=== PATIENT | female | born 1990 | race Caucasian/White ===

== ENCOUNTER 2016-10-05 07:56 | Inpatient (IN) | payer OTHER ==
[~2016-10-05] VITALS: Ht 165.1 cm; Wt 73.2 kg
[~2016-10-05 07:56] MED LIST: PRENTAB26 PO
[2016-10-05] MEDS ORDERED: LACTATED RINGER'S 1000ML 1,000 ML IV PRN (08:48)
[2016-10-05] MEDS ORDERED: DINOPROSTONE 10 MG INSERT PV ONE ×2 (09:00→21:00)
[2016-10-05 09:13] LABS: HEMATOCRIT 38.2 % (37-47); MEAN CELL VOLUME 87.8 fL (80-100); MEAN CORPUSCULAR HEMOGLOBIN 31.3 pg (25-34); MEAN CORPUSCULAR HGB CONC 35.6 g/dl (32-36); MEAN PLATELET VOLUME 10.8 fL (7.4-10.4); PLATELET COUNT 228 K/uL (130-400); RED BLOOD COUNT 4.35 M/uL (4.2-5.4); WHITE BLOOD COUNT 10.81 K/uL (4.8-10.8)
--- NOTE | 2016-10-05 09:26 | Progress Note ---
Progress Note Admit Note 26 F P0000 at 41.2 weeks admitted for induction of labor for post-dates. Unable to adequately check cervix due to patient being extremely nervous and not cooperative with exam. Seems that cervix is posterior and appears closed and thick by exam. Vertex presentation. GBS negative. FHT Cat 1. Cervidil 10 mg placed in vagina.
[2016-10-05 10:24] VITALS: Ht 165.1 cm; Wt 73.2 kg
--- NOTE | 2016-10-05 21:06 | Progress Note ---
Progress Note Cervidil pulled out and replaced with another Cervidil 10 mg vaginally. Patient still not allowing for cervical exam. T Cat 1.
[2016-10-06] MEDS: BUTORPHANOL TARTRATE 1 MG/ML VIAL IV PRN ×2 (01:17→02:56)
[2016-10-06] MEDS ORDERED: FENTANYL 2MCG/ML ROPIV 1.25MG/ML 100ML BAG EPI ONE (03:23)
[2016-10-06] MEDS ORDERED: EpHEDrine SULFATE INJ 50 MG/ML AMP ONE (03:23)
[2016-10-06] MEDS ORDERED: BUPIVACAINE 0.25% 30 ML VIAL ONE (03:23)
[2016-10-06] MEDS ORDERED: FENTANYL CITRATE INJ 50 MCG/1 ML 2 ML VIAL ONE (03:24)
[2016-10-06] MEDS ORDERED: NALOXONE HCL INJ 1 MG in SODIUM CHLORIDE 0.9% 1000ML 1,000 ML IV PRN ×4 (04:22)
[2016-10-06] MEDS ORDERED: LACTATED RINGER'S 1000ML 500 ML IV PRN (04:22)
[2016-10-06] MEDS ORDERED: NALOXONE HCL INJ 0.4 MG/1 ML VIAL/CARP IV PRN (04:30)
[2016-10-06] MEDS ORDERED: NALBUPHINE HCL INJ 10 MG/ML AMP IV PRN (04:30)
[2016-10-06] MEDS ORDERED: PROMETHAZINE HCL INJ 25 MG in SODIUM CHLORIDE 0.9% 50ML 50 ML IV PRN (04:30)
[2016-10-06] MEDS ORDERED: DiphenhydrAMINE HCL 50 MG/ML VIAL IV PRN (04:30)
[2016-10-06] MEDS ORDERED: ONDANSETRON INJ 2 MG/ML 2 ML VIAL IV PRN (04:30)
[2016-10-06] MEDS ORDERED: EpHEDrine SULFATE INJ 50 MG/ML AMP IV PRN (04:30)
[2016-10-06] MEDS: FENTANYL 2MCG/ML ROPIV 1.25MG/ML 100ML BAG EPI PRN ×2 (07:03→10:43)
[2016-10-06] MEDS: LACTATED RINGER'S 1000ML 1,000 ML IV SCH ×3 (07:04→13:23)
[2016-10-06] MEDS ORDERED: OXYTOCIN 30 UNITS/500ML NSS IV ONE (09:39)
[2016-10-06] MEDS ORDERED: NURSING VERBAL MED ORDER ONE (13:00)
[2016-10-06] MEDS ORDERED: CEFAZOLIN SOD 2000 MG in DEXTROSE 5% 50ML IV SCH (13:15)
[2016-10-06] MEDS ORDERED: LACTATED RINGER'S 1000ML 1,000 ML IV SCH (13:41)
[2016-10-06] MEDS ORDERED: SUPERCREAM 0.870 % 15GM JAR EXT PRN (13:45)
[2016-10-06] MEDS ORDERED: MEASLES, MUMPS & RUBELLA VIRUS VIAL SQ. ONE (13:45)
[2016-10-06] MEDS ORDERED: DIPHTHERIA/TETANUS/PERTUSSIS 0.5 ML SYR/VIAL IM. ONE (13:45)
[2016-10-06] MEDS ORDERED: LANOLIN OINT EXT PRN ×2 (13:45)
[2016-10-06] MEDS ORDERED: HYDROCORTISONE ACETATE 25 MG SUPP PR PRN (13:45)
[2016-10-06] MEDS ORDERED: BENZOCAINE 20% AER SPR 82.5 GM CAN EXT PRN (13:45)
[2016-10-06] MEDS ORDERED: IBUPROFEN 600 MG TAB PO PRN (13:45)
[2016-10-06] MEDS ORDERED: OXYTOCIN 30 UNITS/500ML NSS IV PRN (13:45)
[2016-10-06] MEDS ORDERED: CLINDAMYCIN 600 MG/54 ML D5W IV ONE (13:45)
[2016-10-06] MEDS ORDERED: ACETAMINOPHEN 325 MG TAB PO PRN (13:45)
[2016-10-06] MEDS ORDERED: OXYCODONE/ACETAMINOPHEN 5-325 TAB PO PRN (13:45)
--- NOTE | 2016-10-06 13:58 | Anesthesia Procedure Note ---
Anesthesia Epidural Removal Nt Date & Time Oct 06, 2016 at 13:57 Vital Signs Pain Intensity: 2.0 Notes Mental Status: alert / awake / arousable, participated in evaluation Nausea / Vomiting: adequately controlled Pain: adequately controlled Airway Patency, RR, SpO2: stable & adequate BP & HR: stable & adequate Hydration State: stable & adequate Neuraxial Anesthesia: was administered Anesthetic Complications: no major complications apparent, pt satisfied with anesthetic care Epidural: removed without complications, with tip intact
[2016-10-06] MEDS ORDERED: ACETAMINOPHEN SOLN 650MG/20.3 ML UDC PO PRN (14:15)
[2016-10-06] MEDS ORDERED: CLINDAMYCIN IV 600 MG in DEXTROSE 5% ADD-VANTAGE 50ML 50 ML IV ONE (14:30)
[2016-10-06] MEDS ORDERED: LIDOCAINE HCL 2% JELLY 30 ML TUBE EXT ONE ×2 (16:06→16:15)
[2016-10-06 16:55] VITALS: BP 118/76; PULSE 87; TEMP 36.8
--- NOTE | 2016-10-06 17:22 | OPERATIVE REPORT ---
DATE OF OPERATION: 10/06/2016 DELIVERY NOTE TIME OF DELIVERY OF BABY: 12:42 p.m. TIME OF DELIVERY OF PLACENTA: 13:30 p.m. DETAILS OF DELIVERY: The patient was found to be fully dilated and desired to push. She pushed for about 4 hours and then she was getting exhausted. Baby's head was minimally over the perineum. A decision was made to open an episiotomy. After verbal consent was obtained from her, the right mediolateral episiotomy was opened. 1% lidocaine was used for local anesthesia. Then with the second push, baby's head was delivered and then the shoulders were delivered with minimal traction. Baby was handed off to the mother where mouth and nose were suctioned. Cord was clamped x2 and cut, it was a 3-vessel cord. Then baby was given to the nursery team. Then cord blood was obtained. The vagina and perineum were checked for lacerations. The episiotomy was extended to fourth degree laceration which was confirmed with a rectal exam. The anal mucosa was involved about 1 cm into the anal canal with this laceration. The rectal mucosa was intact. Gloves were changed. First the anal mucosal extension was repaired with 3-0 Vicryl in a running fashion until the external anal orifice meeting the perineal skin, and then gloves were changed again and external sphincter muscles were identified, grasped with Allis clamps and brought to the middle. The sphincter muscles were repaired with U- type suture x2 and then [id number] stitch in end-to-end fashion. Rectal exam was repeated. No sutures were felt and patient had good strength of sphincter tone. Gloves were changed. The vaginal mucosa was repaired with 2-0 Vicryl in a running-locked fashion and perineal body muscles and bulbocavernosus muscles were brought together and the skin in a subcuticular fashion She was given 2 grams of cefazolin during the repair. Then placenta was found to be in patient's vagina, delivered spontaneously as intact and complete. Uterus was explored and found to be empty. Lower segment was cleared of all clots and debris. Fundus was firm. EBL was 300. Mother and baby tolerated the procedure well. Baby was a viable female , Apgars 2/9. The weight is 4260 grams which is 9 pounds 6 ounces. At the end of the procedure, sponge, lap, needle and instrument count was correct x2, and I was present during the whole procedure. She will be given 1 dose of Clindamycin IV. I attest to the content of the Intraoperative Record and any orders documented therein. Any exceptions are noted below. MTDD
[2016-10-06] MEDS ORDERED: DOCUSATE SODIUM 100 MG CAP PO SCH (20:00)
[2016-10-06] MEDS: OXYCODONE HCL 5 MG/0.25 ML UDP PO PRN (20:06)
[2016-10-06 20:10] VITALS: BP 125/74; PULSE 81; TEMP 36.9
[2016-10-06] MEDS: DOCUSATE SODIUM 100 MG/10 ML UDC PO SCH (21:29)
[2016-10-06] MEDS: MAGNESIUM HYDROXIDE SUSP 30 ML UDC PO SCH (22:27)
[2016-10-06] MEDS: IBUPROFEN 200 MG/10 ML UDC PO PRN (22:28)
[2016-10-06 23:10] VITALS: BP 111/69; PULSE 87; TEMP 36.5; O2SAT 97
[2016-10-07 03:15] VITALS: BP 100/58; PULSE 84; TEMP 36.6; O2SAT 96
[2016-10-07] MEDS: IBUPROFEN 200 MG/10 ML UDC PO PRN ×3 (06:16→20:48)
[2016-10-07 07:25] VITALS: BP 109/59; PULSE 85; TEMP 36.9
--- NOTE | 2016-10-07 07:56 | OB/GYN Progress Note ---
CARE PROCESS MANAGER Progress Note Date of Service Oct 07, 2016. Subjective conversation w/ patient, physical exam Voiding: no voiding problems Passing Gas: Yes Diet Tolerance: Regular Diet Lochia: Small Feeding Type: Breast Feeding Objective Vital Signs Date Time Temp Pulse Resp B/P Pulse Ox O2 Delivery O2 Flow Rate FiO2 10/07/16 03:15 36.6 84 18 100/58 96 Room Air 10/06/16 23:10 97 Room Air 10/06/16 23:10 36.5 87 18 111/69 97 Room Air 10/06/16 20:10 36.9 81 18 125/74 Room Air 10/06/16 16:55 Room Air 10/06/16 16:55 36.8 87 18 118/76 Room Air Physical Exam General Appearance: WELL-APPEARING, NO APPARENT DISTRESS Abdomen: non tender, soft, no organomegaly Fundus: Firm Incision Description: Clean, Dry & Intact Extremities: normal inspection, no pedal edema, no calf tenderness Laboratory Results Last 24 Hours Test 10/07/16 04:44 Assessment and Plan Post- Day Number: 1 Continue Routine Care: Tent d/c in AM
[2016-10-07] MEDS ORDERED: FERROUS SULFATE 325 MG TAB PO SCH (08:00)
[2016-10-07] MEDS ORDERED: PRENATAL VITAMIN TAB PO SCH (08:00)
[2016-10-07] MEDS: DOCUSATE SODIUM 100 MG/10 ML UDC PO SCH ×2 (08:20→20:20)
[2016-10-07] MEDS: FERROUS SULFATE 325 MG/7.4 ML UDP PO SCH (08:21)
[2016-10-07] MEDS: OXYCODONE HCL 5 MG/0.25 ML UDP PO PRN ×2 (08:21→13:55)
[2016-10-07] MEDS: FLINTSTONES COMPLETE CHEWABLE TAB PO SCH (09:11)
[2016-10-07 09:35] LABS: HEMATOCRIT 23.2 % (37-47)
[2016-10-07 13:00] VITALS: BP 116/63; PULSE 93; TEMP 36.7
[2016-10-07 17:30] VITALS: BP 110/74; PULSE 87; TEMP 36.7
[2016-10-07 20:10] VITALS: BP 115/67; PULSE 93; TEMP 36.7
[2016-10-07] MEDS ORDERED: BISACODYL 5 MG TABEC PO SCH (22:00)
[2016-10-07] MEDS: MAGNESIUM HYDROXIDE SUSP 30 ML UDC PO SCH (22:21)
[2016-10-07 23:35] VITALS: BP 117/71; PULSE 85; TEMP 36.8
[2016-10-08] MEDS: FERROUS SULFATE 325 MG/7.4 ML UDP PO SCH (07:58)
[2016-10-08] MEDS: DOCUSATE SODIUM 100 MG/10 ML UDC PO SCH (07:58)
[2016-10-08] MEDS: FLINTSTONES COMPLETE CHEWABLE TAB PO SCH (07:58)
[2016-10-08] MEDS: IBUPROFEN 200 MG/10 ML UDC PO PRN (08:01)
--- NOTE | 2016-10-08 08:05 | OB/GYN Progress Note ---
ELECTRIC STOVE MECHANIC Progress Note Date of Service: Oct 08, 2016. Patient is seen and examined. She feels well, no complaints. Ambulating without dizziness Voiding without difficulty Tolerating regular diet with out N&V Bleeding is minimal No fever/ chills/ CP/ SOB/ N&V/ Leg pain Breast feeding without problems Baby has studies pending Date Time Temp Pulse Resp B/P Pulse Ox O2 Delivery O2 Flow Rate FiO2 10/07/16 23:35 36.8 85 18 117/71 Room Air 10/07/16 23:35 Room Air 10/07/16 20:10 36.7 93 18 115/67 10/07/16 20:10 Room Air 10/07/16 17:30 Room Air 10/07/16 17:30 36.7 87 18 110/74 Room Air 10/07/16 13:00 36.7 93 18 116/63 Room Air Last 24 Hours Test 10/07/16 09:08 10/08/16 04:44 Hemoglobin 8.2 g/dL Hematocrit 23.2 % PE: General: Alert, orientedx3, NAD Abd: soft, NT, fundus firm, below Umbilicus Perineum intact, Lochia rubra minimal Ext; NT, no edema AP: 26 yo s/p , ppd# 2 VSS Afebrile doing well Anemic, asymptomatic:on iron Repeat CBC pending Continue routine care All questions were answered Instructions were given when to call D/C home after studies complete , f/u in office
[2016-10-08] MEDS ORDERED: MOML PO (08:09)
[2016-10-08] MEDS ORDERED: FSLUDL325 PO (08:09)
[2016-10-08] MEDS ORDERED: IBUP100S PO (08:09)
[2016-10-08] MEDS ORDERED: PEDICHW50 PO (08:09)
[2016-10-08 08:10] VITALS: BP 135/88; PULSE 93; TEMP 36.8; O2SAT 100
--- NOTE | 2016-10-08 08:10 | Discharge Instructions ---
Discharge Instructions Admission Reason for Admission: Induction Discharge Discharge Diagnosis / Problem: Discharge Goals Goal(s): Routine recovery after delivery Medications Continue Dispensed Medications: supercream, dermaplast, lansinoh Activity Recommendations Activity Limitations: as noted below Lifting Limitations: no more than 10 pounds Exercise/Sports Limitations: until after follow-up appointment Shower/Bathe: no limitations Driving or Machine Use: ACTIVITY RECOMMENDATIONS: * Gradual return to full activity over the next 2-3 weeks. * No lifting - nothing heavier than baby over the next 2-3 weeks. * Do not engage in vigorous exercise, sexual activity or sports until cleared by your physician. * Do not drive or operate any motorized equipment until cleared by your physician. * You may shower/bathe daily. BREAST CARE: If you are not breast feeding: * Wear a supportive bra 24 hours a day for one to two weeks. * Avoid stimulating your breasts and nipples as much as possible during the first few weeks after delivery. * When taking a shower, have the warm water hit your back, not breasts. * When your breasts feel full, apply ice packs. Usually three to four times a day helps ease the discomfort. * Take a mild pain medication (Tylenol/Motrin) when you are uncomfortable. If breast feeding: * Use breast milk to lubricate nipples. Lansinoh cream may be used for sore nipples. You do not need to remove cream prior to breast feeding. If using a different brand of cream, check the label for directions regarding removal of cream prior to nursing. * Wear a supportive bra. * If having problems with breasts or breast feeding, call a collection systems consultant or your health care provider. EPISIOTOMY CARE: After delivery, if you have an episiotomy (stitches), the following steps will ease discomfort and aid healing. * For the first 24 hours after delivery, place ice packs next to your episiotomy to help reduce swelling. * After the first 24 hour-period, sitz baths, either portable or in the tub, are suggested. A shower with a shower arm sprayed over the episiotomy may be comforting. * Crystal care should be done after each voiding and bowel movement. Squirt warm water from a plastic bottle over the perineum (region of the body between the anus and urinary opening) and pat dry. * Use Dermoplast to ease discomfort. Shake container. [place] directly over the episiotomy. * Place a Tucks on a clean sanitary pad next to your episiotomy. OVER THE COUNTER MEDICATION: * For discomfort or pain, you may use Acetaminophen (Tylenol), Ibuprofen (Advil ), or Naproxen (Aleve) following the package directions. * For constipation you may use Colace following the package directions. SPECIAL CARE INSTRUCTIONS: When you are discharged from the hospital, it is important for you to follow the instructions listed below: * During the first week at home, you should be able to care for yourself and your baby. In addition, the usual light household activities are encouraged. * Limit your activities to the way you feel. Do not try to clean the house or move furniture. Be sensible. * If you actively engage in sports and have done so up until the time of your delivery, you may resume these activities as soon as you feel able. This may take up to one month or even longer. Use good judgment. * Continue to take your vitamins for at least six weeks after the of your baby. * Your diet need not be limited unless you were on a special diet before your delivery. Breast-feeding mothers need around 2500 calories per day and at least 64-80 ounces of fluid per day (8 to 10 glasses). * You should eat foods from the four major food groups. Crash diets or fad diets are to be avoided. Eating lean meats, fresh fruits and vegetables, low-fat dairy products, high fiber foods and a regular exercise program, will help you get back to your pre- weight without putting your health at risk. * Constipation is sometimes a problem after delivery. Take a mild laxative as needed. If breast feeding, Milk of Magnesia is acceptable to use. You may use a suppository or Fleets enema if no episiotomy. * A daily shower or tub bath is suggested. Be sure to thoroughly and gently dry the perineum. * A bloody vaginal discharge will usually continue until around four weeks post . A small amount of bleeding may continue for as long as six weeks. Vaginal discharge changes from the bright red bleeding after delivery to pink then brownish and finally yellowish-pink before becoming white and disappearing. * Bleeding may increase with activity. Your first period may come in 4-8 weeks. If you are breast feeding, your period may be delayed even longer. * [place] (sex) can begin whenever both you and your partner feel comfortable and do not have any form of genital infection. It is recommended that you wait until after your return appointment and discuss with your physician. If you have questions, please talk to your health care practitioner. A condom should be used to prevent infection and . * Foreplay, gentle intercourse and lubrication is very important the first several times to prevent pain. A water-based lubricant such as K-Y jelly or Astroglide may be used. * Tampons may be used six weeks after delivery. * Douching should be avoided for 6 weeks after delivery. * If you have RH negative blood and your baby is RH positive, you will receive RHOGAM by injection prior to discharge. The nurse will give you a card to keep with you that has the date and place that you received RHOGAM after delivery. * During your care, you had a Rubella screen done to check for the presence of rubella antibodies in your blood. If your test was negative, you will receive a Rubella vaccine prior to discharge. This vaccine may cause a fever, soreness at the injection site and flu-like symptoms. If these symptoms persist, notify your health care practitioner. is not advised for three months after a Rubella vaccine. There is a higher chance of having a baby with defects if conceived within three months of getting the vaccine. * If you were discharged 24 hours from delivery or before 48 hours: Visiting nurses will come to your home 48 hours after discharge to assess you and your baby. The visiting nurse will meet with you while you are in the hospital to arrange a time and get directions to your home. * Verbalizes understanding of car seat law as reviewed with patient nursing. * Car Seat hand-out given and reviewed with patient by nursing. * Shaken baby information reviewed with patient by nursing. Call you doctor if: * Heavy bleeding (saturating several pads an hour) or passing clots the size of your fist. * A fever >101 degrees F (38.3 degrees C) on two occasions four hours apart and/or chills. * Unusual pain in the pelvic or vaginal areas. * "Baby Blues" lasting longer than two weeks. If you have any questions or concerns, call your health care practitioner at . FOLLOW-UP VISIT: * Please call the office at to schedule a 6 week examination. It is important you keep this appointment. * It is important for you to make arrangements for either yearly or twice yearly check-ups thereafter. . Current Hospital Diet Patient's current hospital diet: Regular OB Diet Discharge Diet Recommended Diet: Regular Diet Pending Studies Studies pending at discharge: no Medical Emergencies . Who to Call and When: Medical Emergencies: If at any time you feel your situation is an emergency, please call 911 immediately. . Non-Emergent Contact Non-Emergency issues call your: Surgeon Call Non-Emergent contact if: temperature is above 100.5, your pain is not controlled, your pain is worsening, wound has increased drainage, wound has increased redness, wound has increased pain, you have any medication questions . . "Provider Documentation" section prepared by Nohemy Sweeney. VTE Core Measure Inpt VTE Proph given/why not?: Treatment not indicated
[2016-10-08 08:48] LABS: HEMATOCRIT 28.1 % (37-47); MEAN CELL VOLUME 92.1 fL (80-100); MEAN CORPUSCULAR HEMOGLOBIN 31.5 pg (25-34); MEAN CORPUSCULAR HGB CONC 34.2 g/dl (32-36); MEAN PLATELET VOLUME 10.3 fL (7.4-10.4); PLATELET COUNT 255 K/uL (130-400); RED BLOOD COUNT 3.05 M/uL (4.2-5.4); WHITE BLOOD COUNT 12.39 K/uL (4.8-10.8)
[2016-10-08] MEDS ORDERED: AMOX1TAB43 PO (10:06)
[2016-10-08] MEDS ORDERED: AMOXICILLIN/CLAVULANATE TAB 875 MG TAB PO SCH (10:30)
[2016-10-08] MEDS ORDERED: AMOXICILLIN/CLAVULANATE SUSP 400 MG/5 ML PO SCH (11:30)
[2016-10-08 15:30] VITALS: BP 128/67; PULSE 72; TEMP 36.5; O2SAT 98
[2016-10-08 15:54] VITALS: BP_DIAS 67; PULSE 72; TEMP 36.5
== END 2016-10-08 16:35 | disposition home or self-care (01) | DRG 775 ==
LOC: C.LD 07:56 → C.OBG 10-06 17:25
PROVIDERS: ADMIT Obstetrics & Gynecology; ATTEND Obstetrics & Gynecology
PROC: 0W8NXZZ Division of Female Perineum, External Approach (ICD-10-PCS; principal; 2016-10-06)
PROC: 3E0P7GC Introduction of Other Therapeutic Substance into Female Reproductive, Via Natural or Artificial Opening (ICD-10-PCS; principal; 2016-10-06)
PROC: 0DQP0ZZ Repair Rectum, Open Approach (ICD-10-PCS; principal; 2016-10-06)
PROC: 10E0XZZ Delivery of Products of Conception, External Approach (ICD-10-PCS; principal; 2016-10-06)
DX: O48.0 Post-term pregnancy (principal); O70.3 Fourth degree perineal laceration during delivery; O90.81 Anemia of the puerperium; D64.9 Anemia, unspecified; Z37.0 Single live birth; Z3A.41 41 weeks gestation of pregnancy; Z87.891 Personal history of nicotine dependence

== ENCOUNTER 2017-12-29 05:32 | Inpatient (IN) | payer OTHER ==
[2017-12-14 14:55] LABS: BASO % 0.1 %; BASO ABS # 0.01 K/uL (0-0.2); EOS % 0.4 %; EOS ABS # 0.03 K/uL (0-0.5); HEMATOCRIT 37.3 % (37-47); IG# 0.03 K/uL (0.00-0.02); LYMPH % 21.1 %; LYMPH ABS # 1.55 K/uL (1.2-3.4); MEAN CELL VOLUME 89.9 fL (80-100); MEAN CORPUSCULAR HEMOGLOBIN 31.3 pg (25-34); MEAN CORPUSCULAR HGB CONC 34.9 g/dl (32-36); MEAN PLATELET VOLUME 10.8 fL (7.4-10.4); MONO % 6.1 %; MONO ABS # 0.45 K/uL (0.11-0.59); NEUT % 71.9 %; NEUT ABS # 5.27 K/uL (1.4-6.5); PLATELET COUNT 203 K/uL (130-400); RED CELL DISTRIBUTION WIDTH CV 13.7 % (11.5-14.5); RED CELL DISTRIBUTION WIDTH SD 44.4 fL (36.4-46.3); WHITE BLOOD COUNT 7.34 K/uL (4.8-10.8)
[2017-12-29] VITALS (15 sets, daily range): BP systolic 112–127; BP diastolic 70–76; PULSE 65–78; TEMP 36.3–37.3; O2SAT 95–99; Ht 165.1 cm; Wt 73.6 kg
[~2017-12-29] VITALS: Ht 165.1 cm; Wt 73.6 kg
[~2017-12-29 05:32] MED LIST changes: +CEFAZOLIN IV 2,000 MG in SYRINGE 0 ML IV SCH; +CITRIC ACID/SODIUM CITRATE 15 ML UDC PO SCH; +LACTATED RINGER'S 1000ML 1,000 ML IV SCH
[2017-12-29] MEDS ORDERED: LACTATED RINGER'S 1000ML 1,000 ML IV SCH ×2 (05:35→09:11)
--- NOTE | 2017-12-29 06:57 | History & Physical Bridge Note ---
H&P Re-Evaluation Bridge Note: I have examined the patient, reviewed the History & Physical and in the interval since the performance of the History & Physical I have noted the following changes of clinical significance: No changes noted
[2017-12-29] MEDS ORDERED: MoRPHine SULFATE PF 1 MG/ML 10 ML AMP/VIAL ONE (08:07)
[2017-12-29] MEDS ORDERED: BUPIVACAINE/DEXTROSE 0.75%-8.25% 2 ML AMP ONE (08:07)
[2017-12-29] MEDS ORDERED: OXYTOCIN INJ 10 UNITS/ML VIAL ONE (08:53)
[2017-12-29] MEDS ORDERED: EpHEDrine SULFATE 50MG/5ML SYR ONE (08:53)
[2017-12-29] MEDS ORDERED: PHENYLEPHRINE 100MCG/ML 5ML SYR ONE (08:53)
[2017-12-29] MEDS ORDERED: NALOXONE HCL INJ 0.08 MG in SYRINGE 1.8 ML IV PRN (09:03)
[2017-12-29] MEDS ORDERED: LACTATED RINGER'S 1000ML 500 ML IV PRN (09:03)
[2017-12-29] MEDS ORDERED: SODIUM CHLORIDE 0.9% 1000ML 1,000 ML IV PRN (09:03)
[2017-12-29] MEDS ORDERED: NALOXONE HCL INJ 1 MG in SODIUM CHLORIDE 0.9% 1000ML 1,000 ML IV PRN (09:03)
[2017-12-29 09:11] LABS: BASO % 0.1 %; BASO ABS # 0.01 K/uL (0-0.2); EOS % 0.5 %; EOS ABS # 0.04 K/uL (0-0.5); HEMATOCRIT 40.8 % (37-47); HEMOGLOBIN 14.3 g/dL (12.0-16.0); IG# 0.06 K/uL (0.00-0.02); LYMPH % 24.7 %; LYMPH ABS # 2.06 K/uL (1.2-3.4); MEAN CELL VOLUME 89.7 fL (80-100); MEAN CORPUSCULAR HEMOGLOBIN 31.4 pg (25-34); MEAN PLATELET VOLUME 10.8 fL (7.4-10.4); MONO % 7.7 %; MONO ABS # 0.64 K/uL (0.11-0.59); NEUT % 66.3 %; NEUT ABS # 5.53 K/uL (1.4-6.5); PLATELET COUNT 198 K/uL (130-400); RED CELL DISTRIBUTION WIDTH CV 13.7 % (11.5-14.5); RED CELL DISTRIBUTION WIDTH SD 44.8 fL (36.4-46.3); WHITE BLOOD COUNT 8.34 K/uL (4.8-10.8)
[2017-12-29] MEDS ORDERED: ONDANSETRON INJ 2 MG/ML 2 ML VIAL IV PRN ×2 (09:15)
[2017-12-29] MEDS ORDERED: SUPERCREAM 0.870 % 15GM JAR EXT PRN (09:15)
[2017-12-29] MEDS ORDERED: LANOLIN OINT EXT PRN (09:15)
[2017-12-29] MEDS ORDERED: DIPHTHERIA/TETANUS/PERTUSSIS 0.5 ML SYR/VIAL IM. ONE (09:15)
[2017-12-29] MEDS ORDERED: ATROPINE SULFATE 0.1 MG/ML 5ML SYR IV PRN (09:15)
[2017-12-29] MEDS ORDERED: KETOROLAC TROMETHAMINE 30 MG/ML VIAL IV. PRN (09:15)
[2017-12-29] MEDS ORDERED: MEPERIDINE HCL 25 MG/ML CARP IV PRN ×2 (09:15)
[2017-12-29] MEDS ORDERED: DiphenhydrAMINE HCL 50 MG/ML VIAL IV PRN ×2 (09:15)
[2017-12-29] MEDS ORDERED: MoRPHine SULFATE 4 MG/ML 1 ML CARP\\VIAL IV PRN (09:15)
[2017-12-29] MEDS ORDERED: HYDROCORTISONE ACETATE 25 MG SUPP PR PRN (09:15)
[2017-12-29] MEDS ORDERED: NALBUPHINE HCL INJ 10 MG/ML AMP IV PRN (09:15)
[2017-12-29] MEDS ORDERED: HYDROmorphone INJ 2 MG/ML SYR/VIAL IV PRN (09:15)
[2017-12-29] MEDS ORDERED: NALOXONE HCL 0.4 MG/1 ML VIAL/CARP IV PRN (09:15)
[2017-12-29] MEDS ORDERED: NO NARCOTICS OR SEDATIVES SCH (09:15)
[2017-12-29] MEDS ORDERED: BENZOCAINE 20% AER SPR 82.5 GM CAN EXT PRN (09:15)
[2017-12-29] MEDS ORDERED: METOCLOPRAMIDE HCL INJ 20 MG in SODIUM CHLORIDE 0.9% 50ML 50 ML IV PRN (09:15)
[2017-12-29] MEDS ORDERED: FENTANYL CITRATE INJ 50 MCG/1 ML 2 ML VIAL IV PRN (09:15)
[2017-12-29] MEDS ORDERED: MoRPHine SULFATE PF 1 MG/ML 10 ML AMP/VIAL EPI PRN (09:15)
[2017-12-29] MEDS ORDERED: IBUPROFEN 600 MG TAB PO PRN (09:15)
[2017-12-29] MEDS ORDERED: LABETALOL HCL IV 5 MG/ML 20ML IV PRN (09:15)
[2017-12-29] MEDS ORDERED: EpHEDrine SULFATE INJ 50 MG/ML AMP IV PRN ×2 (09:15)
--- NOTE | 2017-12-29 09:15 | [facility] Post Operative Brief Note ---
Immediate Operative Summary Operative Date December 29, 2017. Pre-Operative Diagnosis 1. Term 2. History of 4th degree laceration 3. Requesting primary csearean section Post-Operative Diagnosis same Procedure(s) Performed Primry lower uterine transverse caesaeran section with the of a live male child at 0834. Surgeon Dr. Hi Captain Of Guards Surgeon(s) Dr. Amaya Estimated Blood Loss 600 ml Findings Consistent with Post-Op Diagnosis Fluids (cc crystalloids) 2400 Specimens A: Placenta B: Cord Blood C: Cord Blood sample for genetic testing- given to patient Drains None Anesthesia Type Spinal Complication(s) none Disposition Accompanied Pt To Recover: no Disposition: L&D
--- NOTE | 2017-12-29 10:47 | OPERATIVE REPORT ---
DATE OF OPERATION: 12/29/2017 PREOPERATIVE DIAGNOSES: 1. Term intrauterine at 39 weeks and 3 days gestation. 2. History of prior fourth-degree laceration. 3. Requesting primary section. POSTOPERATIVE DIAGNOSES: Same. OPERATIVE PROCEDURE: Primary low transverse section. SURGEON: Jas Hi DO BUCKET WASH OPERATOR: Kaushik Amaya MD ANESTHESIA: Spinal. ESTIMATED BLOOD LOSS: 600 mL. INTRAVENOUS FLUIDS: 2400 mL crystalloids. URINE OUTPUT: 75 mL clear yellow urine. SPECIMENS: Placenta, cord blood and cord blood sample for genetic testing given to patient. DRAINS: Avery to gravity. DISPOSITION: To labor and delivery. OPERATIVE FINDINGS: The patient delivered a viable male infant in the vertex position at 08:37 a.m. on 12/29/2017 via primary section. Baby's Apgars were 8 at 1 minute and 9 at 5 minutes. Please see photo checker's notes for further baby assessment. Cord blood was obtained and intact placenta with 3-vessel cord delivered at 08:38 and sent to pathology. Grossly normal uterus and bilateral tubes and ovaries were noted. Both patient and baby tolerated the surgery well and were in recovery with stable vital signs. OPERATIVE PROCEDURE IN DETAIL: The patient was taken to the operating room where spinal anesthesia was administered. She was immediately placed in a dorsal supine position with a left lateral tilt and was prepped and draped in a manner appropriate for the procedure. Once the anesthesia was found to be adequate, a Pfannenstiel incision was made 2 fingerbreadths above the pubic symphysis and was carried down through to a layer of the rectus fascia. Fascia was nicked in the midline and extended bilaterally with curved Lopez scissors and electrocautery. The superior aspect of the fascial incision was grasped with Keyanna clamps, elevated, and rectus muscles were dissected off with the use of the curved Lopez scissors. Likewise, the inferior aspect of the fascial incision was grasped with Keyanna clamps, elevated, and rectus muscles were dissected off with the use of curved Lopez scissors. Rectus muscles were in midline. The peritoneum was entered bluntly and extended cephalocaudally with gentle traction. A bladder blade was then placed within the abdomen. The vesicouterine peritoneum was identified and a bladder flap was created with the Metzenbaum scissors and digital traction. The bladder flap was reincorporated beneath the Judith blade. A transverse incision was then made on the uterus and extended bilaterally with digital traction. Clear amniotic fluid was noted. The head was identified and delivered through the incision along with the rest of the baby. Baby was bulb suctioned at delivery. Cord was clamped x2 and cut. The baby was immediately handed to an awaiting photo checker for further evaluation and management. Please see photo checker's notes for further baby assessment. Cord blood was then obtained and intact placenta with 3-vessel cord was delivered manually and sent to pathology. The uterus was then exteriorized and wrapped in a moist laparotomy sponge. The uterus was then cleared of any trailing membranes and debris with a laparotomy sponge. The uterine incision was then grasped with ring forceps at 4 quadrants and was closed with 0 Vicryl suture in continuous locking fashion. A second layer of 0 Vicryl suture was used in imbricating fashion to ensure hemostasis. Any residual bleeding was suture ligated with 0 Vicryl suture in a [id number] interrupted fashion. Excellent hemostasis was noted. The posterior cul-de-sac was then irrigated with warm saline solution. The uterus was then placed back within its normal anatomic position within the abdomen. The anterior cul-de-sac was then irrigated with warm saline solution as well. Excellent hemostasis was noted at the incision. Dianne was placed over the incision to ensure hemostasis. All instruments were then removed from the abdomen. The peritoneum was then grasped with Sigrid clamps at 4 quadrants and was then closed with 2-0 Vicryl suture in continuous running fashion. The rectus fascia was then closed with 0 Vicryl suture in continuous running fashion. The subcutaneous tissue was irrigated with warm saline solution. The skin was then closed with 4-0 Monocryl in a subcuticular fashion. Excellent hemostasis was noted through all tissue layers. All sponge, instrument and needle counts found to be correct x2. Both patient and baby tolerated the surgery well and were in recovery with stable vital signs. I attest to the content of the Intraoperative Record and any orders documented therein. Any exception s are noted below.
--- NOTE | 2017-12-29 10:58 | Anesthesiology Progress Note ---
Anesthesia Post Op Note Date & Time December 29, 2017 at 10:58 Notes Mental Status: alert / awake / arousable, participated in evaluation Pt Amnestic to Procedure: Yes Nausea / Vomiting: adequately controlled Pain: adequately controlled Airway Patency, RR, SpO2: stable & adequate BP & HR: stable & adequate Hydration State: stable & adequate Anesthetic Complications: no major complications apparent
[2017-12-29] MEDS: OXYTOCIN INJ 30 UNITS in LACTATED RINGER'S 1000ML 1,000 ML IV SCH ×2 (11:51→21:12)
[2017-12-29] MEDS: SIMETHICONE 80 MG CHEW PO SCH ×3 (12:00→21:13)
[2017-12-29] MEDS: DOCUSATE SODIUM 100 MG CAP PO SCH (21:04)
[2017-12-30] VITALS (8 sets, daily range): BP systolic 101–115; BP diastolic 64–71; PULSE 73–88; TEMP 36.9–37.4; O2SAT 96–97
[2017-12-30] MEDS ORDERED: DC INTRASPINAL MORPHINE ONE (02:10)
[2017-12-30] MEDS ORDERED: ZOLPIDEM TARTRATE 5 MG TAB PO PRN (02:10)
[2017-12-30] MEDS ORDERED: ONDANSETRON INJ 2 MG/ML 2 ML VIAL IV PRN (02:10)
[2017-12-30] MEDS ORDERED: MEPERIDINE HCL 50 MG/ML CARP IV PRN ×2 (02:10)
[2017-12-30] MEDS ORDERED: OXYCODONE/ACETAMINOPHEN 5-325 TAB PO PRN (02:10)
[2017-12-30] MEDS ORDERED: KETOROLAC TROMETHAMINE 30 MG/ML VIAL IV. PRN (02:10)
[2017-12-30 07:00] LABS: BASO % 0.1 %; BASO ABS # 0.01 K/uL (0-0.2); EOS % 0.1 %; EOS ABS # 0.01 K/uL (0-0.5); HEMATOCRIT 35.6 % (37-47); HEMOGLOBIN 12.4 g/dL (12.0-16.0); IG# 0.04 K/uL (0.00-0.02); LYMPH % 9.8 %; LYMPH ABS # 1.36 K/uL (1.2-3.4); MEAN CELL VOLUME 89.2 fL (80-100); MEAN CORPUSCULAR HEMOGLOBIN 31.1 pg (25-34); MEAN CORPUSCULAR HGB CONC 34.8 g/dl (32-36); MEAN PLATELET VOLUME 10.6 fL (7.4-10.4); MONO ABS # 0.84 K/uL (0.11-0.59); NEUT % 83.7 %; NEUT ABS # 11.67 K/uL (1.4-6.5); PLATELET COUNT 182 K/uL (130-400); RED CELL DISTRIBUTION WIDTH CV 13.7 % (11.5-14.5); WHITE BLOOD COUNT 13.93 K/uL (4.8-10.8)
[2017-12-30] MEDS: PRENATAL VITAMIN TAB PO SCH (08:00)
[2017-12-30] MEDS ORDERED: FERROUS SULFATE 325 MG TAB PO SCH (08:00)
--- NOTE | 2017-12-30 08:01 | OB/GYN Progress Note ---
SENIOR CONTROLS TECHNICIAN Progress Note Date of Service: December 30, 2017. Patient is seen and examined. She feels well, no complaints. Pain is under control Ambulating without dizziness Voiding without difficulty Tolerating clear diet with out N&V Hungry and likes to eat Flatus neg BM neg Bleeding is minimal No fever/ chills/ CP/ SOB/ N&V/ Leg pain Breast feeding without problems Date Time Temp Pulse Resp B/P (MAP) Pulse Ox O2 Delivery O2 Flow Rate FiO2 12/30/17 07:51 37.2 82 18 101/66 (78) Room Air 12/30/17 03:30 37.2 88 16 111/70 (84) Room Air 12/30/17 02:00 18 97 12/30/17 01:00 16 97 12/30/17 00:00 16 96 12/29/17 23:45 37.3 78 18 112/70 (84) Room Air 12/29/17 23:45 97 Room Air 12/29/17 23:00 18 97 12/29/17 22:00 18 96 12/29/17 21:00 18 99 12/29/17 20:15 36.9 71 18 118/75 (89) 95 Room Air 12/29/17 20:00 18 97 12/29/17 19:00 18 97 12/29/17 18:00 16 96 12/29/17 17:00 18 98 12/29/17 16:00 16 98 12/29/17 15:20 36.3 65 18 115/70 (85) 96 Room Air 12/29/17 15:00 16 98 12/29/17 14:00 18 97 12/29/17 13:00 18 96 12/29/17 12:00 18 97 12/29/17 12:00 97 Room Air 12/29/17 12:00 36.3 65 18 127/76 (93) 97 Room Air 12/29/17 12:00 36.3 65 18 127/76 (93) 97 Room Air PE: General: Alert, orientedx3, NAD CVS: S1S2 RRR Lungs; CTAB Abd: soft, NT, ND, BS+, fundus firm, below Umbilicus Dressing: Clean, dry, intact Perineum intact, Lochia rubra minimal Ext; NT, no edema AP: 27 yo s/p C Section, pod# 1 VSS Afebrile doing well Continue routine postop care Encourage ambulation, PO intake All questions were answered
[2017-12-30] MEDS: SIMETHICONE 80 MG CHEW PO SCH ×4 (09:04→20:52)
[2017-12-30] MEDS: DOCUSATE SODIUM 100 MG CAP PO SCH ×2 (09:04→20:52)
[2017-12-30] MEDS: MAGNESIUM HYDROXIDE SUSP 30 ML UDC PO PRN (09:04)
[2017-12-30] MEDS: OXYCODONE/ACETAMINOPHEN 5-325 TAB PO PRN (09:05)
[2017-12-30] MEDS: FERROUS SULFATE 325 MG/7.4 ML UDP PO SCH (09:26)
[2017-12-30] MEDS: IBUPROFEN 200 MG/10 ML UDC PO PRN ×3 (12:26→22:16)
[2017-12-30] MEDS: SENNA 8.6 MG TAB PO PRN (21:22)
[2017-12-30] MEDS ORDERED: BISACODYL 5 MG TABEC PO ONE (22:00)
[2017-12-31] MEDS: OXYCODONE/ACETAMINOPHEN 5-325 TAB PO PRN ×2 (06:42→13:49)
[2017-12-31 07:30] VITALS: BP 115/76; PULSE 76; TEMP 37; O2SAT 97
[2017-12-31 07:40] LABS: HEMATOCRIT 35.5 % (37-47); HEMOGLOBIN 12.2 g/dL (12.0-16.0)
[2017-12-31] MEDS: PRENATAL VITAMIN TAB PO SCH (08:00)
[2017-12-31] MEDS: DOCUSATE SODIUM 100 MG CAP PO SCH ×2 (09:09→20:27)
[2017-12-31] MEDS: SIMETHICONE 80 MG CHEW PO SCH ×4 (09:10→20:27)
[2017-12-31] MEDS: FERROUS SULFATE 325 MG/7.4 ML UDP PO SCH (09:10)
[2017-12-31] MEDS: IBUPROFEN 200 MG/10 ML UDC PO PRN ×3 (09:12→20:34)
[2017-12-31] MEDS ORDERED: BISACODYL 10 MG SUPP PR PRN (09:15)
--- NOTE | 2017-12-31 09:27 | Surgery Progress Note ---
Surgery Progress Note Date of Service December 31, 2017. Subjective Post OP Day: 2 + feeling well, + ambulating, + flatus, + pain controlled, + diet, No complaints , No chest pain, No SOB, No bowel movement, No nausea, No vomiting Objective Vital Signs: Date Time Temp Pulse Resp B/P (MAP) Pulse Ox O2 Delivery O2 Flow Rate FiO2 12/30/17 23:30 36.9 73 18 115/71 (86) Room Air 12/30/17 23:30 Room Air 12/30/17 15:20 96 Room Air 12/30/17 15:20 37.4 80 18 110/64 (79) 96 Room Air 12/30/17 11:46 37.3 80 18 104/64 (77) Room Air General Appearance: WD/WN, no apparent distress Head: normocephalic, atraumatic Neck: supple, no adenopathy, thyroid normal, no JVD, no carotid bruits, trachea midline Respiratory/Chest: chest non-tender, lungs clear, normal breath sounds, no respiratory distress, no accessory muscle use Cardiovascular: regular rate, rhythm, no edema, no gallop, no JVD, no murmur Abdomen: normal bowel sounds, non tender, non distended, soft, no organomegaly , no pulsatile mass Incision(s): clean, dry, intact, no erythema, no drainage Extremities: normal range of motion, non-tender, normal inspection, no pedal edema, no calf tenderness, normal capillary refill, pelvis stable Laboratory Results: Results Past 24 Hours Test 12/31/17 07:34 Range/Units Hemoglobin 12.2 12.0-16.0 g/dL Hematocrit 35.5 37-47 % Assessment & Plan C/sec Day #2 Pt doing well anticipate disch tomorrow
[2017-12-31 16:00] VITALS: BP 115/73; PULSE 69; TEMP 36.9; O2SAT 98
[2017-12-31] MEDS: MAGNESIUM HYDROXIDE SUSP 30 ML UDC PO PRN (16:50)
[2017-12-31 23:15] VITALS: BP 119/71; PULSE 72; TEMP 37; O2SAT 96
[2017-12-31] MEDS: SENNA 8.6 MG TAB PO PRN (23:20)
[2018-01-01] MEDS: OXYCODONE/ACETAMINOPHEN 5-325 TAB PO PRN (02:20)
[2018-01-01] MEDS: IBUPROFEN 200 MG/10 ML UDC PO PRN (06:35)
[2018-01-01 07:55] VITALS: BP 111/73; PULSE 75; TEMP 36.4; O2SAT 99
[2018-01-01] MEDS: PRENATAL VITAMIN TAB PO SCH (08:00)
[2018-01-01] MEDS: SIMETHICONE 80 MG CHEW PO SCH (08:30)
[2018-01-01] MEDS: DOCUSATE SODIUM 100 MG CAP PO SCH (08:30)
[2018-01-01] MEDS: FERROUS SULFATE 325 MG/7.4 ML UDP PO SCH (08:30)
--- NOTE | 2018-01-01 09:55 | OB/GYN Progress Note ---
[employer] Progress Note Date of Service January 01, 2018. Subjective conversation w/ patient, physical exam Ambulation: ambulating normally Voiding: no voiding problems Passing Gas: Yes Diet Tolerance: Regular Diet Lochia: Small Feeding Type: Breast Feeding Pain: 09/01 Notes: Doing well. Feels a little bloated but passing gas and had a BM. Tolerating regular diet, -N/V. Ambulating without difficulty. Would like to go home today. Objective Vital Signs Date Time Temp Pulse Resp B/P (MAP) Pulse Ox O2 Delivery O2 Flow Rate FiO2 12/31/17 23:15 Room Air 12/31/17 23:15 37.0 72 16 119/71 (87) 96 Room Air 12/31/17 16:00 36.9 69 18 115/73 (87) 98 Room Air 12/31/17 16:00 98 Room Air Physical Exam General Appearance: WELL-APPEARING Respiratory/Chest: chest non-tender, lungs clear Cardiovascular: regular rate, rhythm Abdomen: normal bowel sounds, soft Fundus: Firm Incision Description: Clean, Dry & Intact Extremities: normal range of motion, non-tender, no calf tenderness Assessment and Plan Post-Op Day Number: 3 Continue Routine Care: -D/C home today -F/U for 1 week incision check
[2018-01-01] MEDS ORDERED: OXYC-57 PO (09:57)
[2018-01-01] MEDS ORDERED: Ibuprofen Susp PO (09:57)
--- NOTE | 2018-01-01 09:58 | Discharge Instructions ---
Discharge Instructions Date of Service January 01, 2018. Admission Reason for Admission: Previous 4TH Degree Tear, Requesting Sect Discharge Discharge Diagnosis / Problem: Primary Section Discharge Goals Goal(s): Routine recovery after Activity Recommendations Activity Limitations: per Instructions/Follow-up section . Instructions / Follow-Up Instructions / Follow-Up ACTIVITY RECOMMENDATIONS: * Gradual return to full activity over the next 2-3 weeks. * No lifting - nothing heavier than baby over the next 2-3 weeks. * Do not engage in vigorous exercise, sexual activity or sports until cleared by your physician. * Do not drive or operate any motorized equipment until cleared by your physician. * You may shower/bathe daily. BREAST CARE: If you are not breast feeding: * Wear a supportive bra 24 hours a day for one to two weeks. * Avoid stimulating your breasts and nipples as much as possible during the first few weeks after delivery. * When taking a shower, have the warm water hit your back, not breasts. * When your breasts feel full, apply ice packs. Usually three to four times a day helps ease the discomfort. * Take a mild pain medication (Tylenol/Motrin) when you are uncomfortable. If breast feeding: * Use breast milk to lubricate nipples. Lansinoh cream may be used for sore nipples. You do not need to remove cream prior to breast feeding. If using a different brand of cream, check the label for directions regarding removal of cream prior to nursing. * Wear a supportive bra. * If having problems with breasts or breast feeding, call a storage consultant or your health care provider. OVER THE COUNTER MEDICATION: * For discomfort or pain, you may use Acetaminophen (Tylenol), Ibuprofen (Advil ), or Naproxen (Aleve) following the package directions. * For constipation you may use Colace following the package directions. SPECIAL CARE INSTRUCTIONS: When you are discharged from the hospital, it is important for you to follow the instructions listed below: * During the first week at home, you should be able to care for yourself and your baby. In addition, the usual light household activities are encouraged. * Limit your activities to the way you feel. Do not try to clean the house or move furniture. Be sensible. * If you actively engage in sports and have done so up until the time of your delivery, you may resume these activities as soon as you feel able. This may take up to one month or even longer. Use good judgment. * Continue to take your vitamins for at least six weeks after the of your baby. * Your diet need not be limited unless you were on a special diet before your delivery. Breast-feeding mothers need around 2500 calories per day and at least 64-80 ounces of fluid per day (8 to 10 glasses). * You should eat foods from the four major food groups. Crash diets or fad diets are to be avoided. Eating lean meats, fresh fruits and vegetables, low-fat dairy products, high fiber foods and a regular exercise program, will help you get back to your pre- weight without putting your health at risk. * Constipation is sometimes a problem after delivery. Take a mild laxative as needed. If breast feeding, Milk of Magnesia is acceptable to use. You may use a suppository or Fleets enema if no episiotomy. * A daily shower or tub bath is suggested. Be sure to thoroughly and gently dry the perineum. * A bloody vaginal discharge will usually continue until around four weeks post . A small amount of bleeding may continue for as long as six weeks. Vaginal discharge changes from the bright red bleeding after delivery to pink then brownish and finally yellowish-pink before becoming white and disappearing. * Bleeding may increase with activity. Your first period may come in 4-8 weeks. If you are breast feeding, your period may be delayed even longer. * [place] (sex) can begin whenever both you and your partner feel comfortable and do not have any form of genital infection. It is recommended that you wait at least six weeks for internal and external healing to occur. If you have questions, please talk to your health care practitioner. A condom should be used to prevent infection and . * Foreplay, gentle intercourse and lubrication is very important the first several times to prevent pain. A water-based lubricant such as K-Y jelly or Astroglide may be used. * Tampons and/or Douching should be avoided until after six weeks check-up. * If you have RH negative blood and your baby is RH positive, you will receive RHOGAM by injection prior to discharge. The nurse will give you a card to keep with you that has the date and place that you received RHOGAM after delivery. * During your care, you had a Rubella screen done to check for the presence of rubella antibodies in your blood. If your test was negative, you will receive a Rubella vaccine prior to discharge. This vaccine may cause a fever, soreness at the injection site and flu-like symptoms. If these symptoms persist, notify your health care practitioner. is not advised for three months after a Rubella vaccine. * Verbalizes understanding of car seat law as reviewed with patient nursing. * Car Seat hand-out given and reviewed with patient by nursing. * Shaken baby information reviewed with patient by nursing. Call you doctor if: * Heavy bleeding (saturating several pads an hour) or passing clots the size of your fist. * A fever >101 degrees F (38.3 degrees C) on two occasions four hours apart and /or chills. * Unusual pain in the pelvic or vaginal areas. Pain should improve each day . * Call the doctor for any increased redness, drainage or swelling around the incision and any pain unrelieved by prescribed pain medication. * Any signs or symptoms of phlebitis (possible blood clots forming in the veins ): leg pain, warm, red or swollen area on leg. * "Baby Blues" lasting longer than two weeks. If you have any questions or concerns, call your health care practitioner at . FOLLOW-UP VISIT: * Incision check (staple removal) in 1 week. Please call doctor's office at to set up appointment. * Please call the office at to schedule a 6 week examination. It is important you keep this appointment. * It is important for you to make arrangements for either yearly or twice yearly check-ups thereafter. Current Hospital Diet Patient's current hospital diet: Regular OB Diet Discharge Diet Recommended Diet: Regular OB Diet Procedures Procedures Performed: Primry lower uterine transverse caesaeran section with the of a live male child at 0834. Pending Studies Studies pending at discharge: no Medical Emergencies . Who to Call and When: Medical Emergencies: If at any time you feel your situation is an emergency, please call 911 immediately. . Non-Emergent Contact Non-Emergency issues call your: Primary Care Provider, Gas Plant Dispatcher . . "Provider Documentation" section prepared by Jas Hi. . [place] Drug Monitoring Program Search Results: patient reviewed within database, no issues identified
--- NOTE | 2018-01-01 10:43 | Discharge Summary ---
Discharge Summary Date of Service January 01, 2018. Discharge Summary Admission Date: December 29, 2017 at 05:32 Discharge Date: January 01, 2018 Discharge Disposition: Home Principal Diagnosis: Term , Hx of fourth degree laceration, Requesting primary section Procedures: Primary Low Transverse Section Medication Reconciliation New Medications: Oxycodone/Acetaminophen 5MG/325MG (Percocet 5MG/325MG) Tab 1 TAB PO Q4H PRN for Pain - Pain Scale 1-5, #14 TAB PAIN [Ibuprofen Susp] () 200 MG/10 ML SUSP 600 MG PO Q6 PRN for Pain or Fever, #1 BTL Continued Medications: Multivit/Min/Iron/Fol Ac/Pren ( Vitamin) Tab 1 TAB PO DAILY, TAB Admission Information HPI (per Admitting provider): Patient is a 27 y/o at 39.3 weeks who is requesting a primary section due to having a history of a fourth degree laceration with her last . She was counseled throughout her about the risks and benefits of a elective primary section vs a trial of labor/. After much consideration both patient and her have agreed with proceeding a primary section. Physical Exam (per Admitting): General Appearance: WD/WN, no apparent distress Respiratory/Chest: chest non-tender, lungs clear Cardiovascular: regular rate, rhythm Abdomen/GI: normal bowel sounds, non tender, soft Neurologic/Psych: alert, oriented x 3 Skin: normal color, warm/dry, no rash Hospital Course Patient underwent her scheduled elective primary section on the day of admission without complications. Her postop recovery was uneventful. On POD # 1 her gonzales catheter was removed and her diet and activity were advanced as tolerated. Her pain was well controlled throughout her admission. She was tolerating a regular diet, +flatus, +BM. Her incision remained clean, dry and intact. She was ambulating without difficulty. She was discharged home on POD # 3 with discharge instructions. Total time spent on discharge = 20mins This includes examination of the patient, discharge planning, medication reconciliation, and communication with other providers. Discharge Instructions ACTIVITY RECOMMENDATIONS: * Gradual return to full activity over the next 2-3 weeks. * No lifting - nothing heavier than baby over the next 2-3 weeks. * Do not engage in vigorous exercise, sexual activity or sports until cleared by your physician. * Do not drive or operate any motorized equipment until cleared by your physician. * You may shower/bathe daily. BREAST CARE: If you are not breast feeding: * Wear a supportive bra 24 hours a day for one to two weeks. * Avoid stimulating your breasts and nipples as much as possible during the first few weeks after delivery. * When taking a shower, have the warm water hit your back, not breasts. * When your breasts feel full, apply ice packs. Usually three to four times a day helps ease the discomfort. * Take a mild pain medication (Tylenol/Motrin) when you are uncomfortable. If breast feeding: * Use breast milk to lubricate nipples. Lansinoh cream may be used for sore nipples. You do not need to remove cream prior to breast feeding. If using a different brand of cream, check the label for directions regarding removal of cream prior to nursing. * Wear a supportive bra. * If having problems with breasts or breast feeding, call a [employer] consultant or your health care provider. OVER THE COUNTER MEDICATION: * For discomfort or pain, you may use Acetaminophen (Tylenol), Ibuprofen (Advil ), or Naproxen (Aleve) following the package directions. * For constipation you may use Colace following the package directions. SPECIAL CARE INSTRUCTIONS: When you are discharged from the hospital, it is important for you to follow the instructions listed below: * During the first week at home, you should be able to care for yourself and your baby. In addition, the usual light household activities are encouraged. * Limit your activities to the way you feel. Do not try to clean the house or move furniture. Be sensible. * If you actively engage in sports and have done so up until the time of your delivery, you may resume these activities as soon as you feel able. This may take up to one month or even longer. Use good judgment. * Continue to take your vitamins for at least six weeks after the of your baby. * Your diet need not be limited unless you were on a special diet before your delivery. Breast-feeding mothers need around 2500 calories per day and at least 64-80 ounces of fluid per day (8 to 10 glasses). * You should eat foods from the four major food groups. Crash diets or fad diets are to be avoided. Eating lean meats, fresh fruits and vegetables, low-fat dairy products, high fiber foods and a regular exercise program, will help you get back to your pre- weight without putting your health at risk. * Constipation is sometimes a problem after delivery. Take a mild laxative as needed. If breast feeding, Milk of Magnesia is acceptable to use. You may use a suppository or Fleets enema if no episiotomy. * A daily shower or tub bath is suggested. Be sure to thoroughly and gently dry the perineum. * A bloody vaginal discharge will usually continue until around four weeks post . A small amount of bleeding may continue for as long as six weeks. Vaginal discharge changes from the bright red bleeding after delivery to pink then brownish and finally yellowish-pink before becoming white and disappearing. * Bleeding may increase with activity. Your first period may come in 4-8 weeks. If you are breast feeding, your period may be delayed even longer. * [place] (sex) can begin whenever both you and your partner feel comfortable and do not have any form of genital infection. It is recommended that you wait at least six weeks for internal and external healing to occur. If you have questions, please talk to your health care practitioner. A condom should be used to prevent infection and . * Foreplay, gentle intercourse and lubrication is very important the first several times to prevent pain. A water-based lubricant such as K-Y jelly or Astroglide may be used. * Tampons and/or Douching should be avoided until after six weeks check-up. * If you have RH negative blood and your baby is RH positive, you will receive RHOGAM by injection prior to discharge. The nurse will give you a card to keep with you that has the date and place that you received RHOGAM after delivery. * During your care, you had a Rubella screen done to check for the presence of rubella antibodies in your blood. If your test was negative, you will receive a Rubella vaccine prior to discharge. This vaccine may cause a fever, soreness at the injection site and flu-like symptoms. If these symptoms persist, notify your health care practitioner. is not advised for three months after a Rubella vaccine. * Verbalizes understanding of car seat law as reviewed with patient nursing. * Car Seat hand-out given and reviewed with patient by nursing. * Shaken baby information reviewed with patient by nursing. Call you doctor if: * Heavy bleeding (saturating several pads an hour) or passing clots the size of your fist. * A fever >101 degrees F (38.3 degrees C) on two occasions four hours apart and /or chills. * Unusual pain in the pelvic or vaginal areas. Pain should improve each day . * Call the doctor for any increased redness, drainage or swelling around the incision and any pain unrelieved by prescribed pain medication. * Any signs or symptoms of phlebitis (possible blood clots forming in the veins ): leg pain, warm, red or swollen area on leg. * "Baby Blues" lasting longer than two weeks. If you have any questions or concerns, call your health care practitioner at . FOLLOW-UP VISIT: * Incision check (staple removal) in 1 week. Please call doctor's office at to set up appointment. * Please call the office at to schedule a 6 week examination. It is important you keep this appointment. * It is important for you to make arrangements for either yearly or twice yearly check-ups thereafter.
[2018-01-01 11:32] VITALS: BP_DIAS 73; PULSE 75; TEMP 36.4
== END 2018-01-01 11:30 | disposition home or self-care (01) | DRG 766 ==
LOC: C.LD 05:32 → EDSTATUS 07:30 → C.OBG 11:59
PROVIDERS: ADMIT Obstetrics & Gynecology; ATTEND Obstetrics & Gynecology
PROC: 10D00Z1 Extraction of Products of Conception, Low, Open Approach (ICD-10-PCS; principal; 2017-12-29 07:30)
DX: O34.73 Maternal care for abnormality of vulva and perineum, third trimester (principal); Z3A.39 39 weeks gestation of pregnancy; Z37.0 Single live birth